=== PATIENT | male | born 1995 | race Caucasian/White ===

== ENCOUNTER 2019-03-02 20:15 | Emergency (ER) | payer BC ==
[2019-03-02] MEDS ORDERED: HALOPERIDOL LACT 5 MG/ML INJ IVP ONE (20:31)
[2019-03-02] MEDS ORDERED: NS 1,000 ML IV ONE ×2 (20:31→20:32)
--- NOTE | 2019-03-02 20:35 | EDPHY ---
H & P Stated Complaint: NAUSEA, VOMITING, DIARRHEA Time Seen by Provider: 03/02/19 20:25 HPI/ROS: CHIEF COMPLAINT: Nausea vomiting, diarrhea, lightheaded HISTORY OF PRESENT ILLNESS: 23-year-old male generally healthy no history of abdominal surgeries complaining of multiple episodes of nausea, vomiting, diarrhea for the past 4 hr. He recently visited to family members both of whom are sick with similar GI symptoms. Denies melena hematochezia. Denies untreated water sources. Denies recent antibiotic use. Denies abdominal pain. No testicular pain. No back or flank pain. No trauma. Patient reports that he returned today from visiting a family member who is currently hospitalized in [place] for gastroenteritis like symptoms, possible C diff although this is not confirmed. REVIEW OF SYSTEMS: 10 systems reviewed and negative with the exception of the elements mentioned in the history of present illness PAST MEDICAL & SURGICAL HISTORY: No pertinent medical or surgical history SOCIAL HISTORY: Nonsmoker. No alcohol use. No marijuana abuse. PHYSICAL EXAM (Prior to examination, patient consented to physical exam, hands were washed and my usual and customary physical exam procedures followed) 1) GENERAL: Well-developed, well-nourished, alert and oriented. Appears nontoxic, appears uncomfortable, retching, hyperventilating 2) HEAD: Normocephalic, atraumatic 3) HEENT: Pupils equal, round, reactive to light bilaterally. Sclera anicteric. Oropharynx: Dry mucous membranes 4) NECK: Full range of motion, no meningeal signs. 5) LUNGS: Clear auscultation bilaterally, no wheezes, no rhonchi, no retractions. 6) HEART: Regular rate and rhythm, no murmur, no heave, no gallop. 7) ABDOMEN: No guarding, no rebound, no focal tenderness, negative McBurney's, negative Hanks's, negative Rovsing's, negative peritoneal sign, I am unable to elicit any abdominal pain on exam 8) MUSCULOSKELETAL: Moving all extremities, no focal areas of tenderness, no obvious trauma. No peripheral edema or discoloration. 9) BACK: No CVA tenderness, no midline vertebral tenderness, no fluctuance, no step-off, no obvious trauma, no visual or palpable abnormality. 10) SKIN: No rash, no petechiae. 11) Psychiatric: Patient is oriented X 3, there is no agitation. DIFFERENTIAL DIAGNOSIS: My differential diagnosis includes, but is not limited to, acute appendicitis, acute cholecystitis, bowel obstruction, acute pancreatitis, testicular torsion, gastritis and urinary tract infection. The patient understands that this diagnosis is provisional and can never be 100% accurate. This is a partial list of diagnoses considered. These considerations are based on history, physical exam, past history and reassessment.] - Personal History Current Tetanus Diphtheria and Acellular Pertussis (TDAP): Yes - Medical/Surgical History Hx Asthma: No Hx Chronic Respiratory Disease: No Hx Diabetes: No Hx Cardiac Disease: No Hx Renal Disease: No Hx Cirrhosis: No Hx Alcoholism: No Hx HIV/AIDS: No Hx Splenectomy or Spleen Trauma: No Other PMH: DENIES - Social History Smoking Status: Never smoked Constitutional: Initial Vital Signs Temperature (C) 36.6 C 03/02/19 20:21 Heart Rate 119 H 03/02/19 20:21 Respiratory Rate 22 H 03/02/19 20:21 Blood Pressure 96/71 L 03/02/19 20:21 O2 Sat (%) 95 03/02/19 20:21 O2 Delivery Mode Room Air Allergies/Adverse Reactions: pertussis vaccine,adsorbed Allergy (Verified 03/02/19 20:20) Home Medications: Medication Instructions Recorded NK [No Known Home Meds] 03/02/19 Medical Decision Making - Diagnostics Imaging Results: Imaging Impressions Abdomen CT 03/02/19 21:45 Impression: 1. Fluid-filled distention of small bowel and colon suggestive of gastroenteritis. No CT evidence of acute appendicitis. Results called to Arturo Vale PA-C, at 10:21 PM. Images reviewed myself ED Course/Re-evaluation: 10:40 p.m.: Re-evaluation. Patient is sleeping, able tolerate oral intake. He has provide a stool sample. I reviewed his imaging studies with him showing no evidence of acute appendicitis. Does have CT findings consistent with gastroenteritis. He was able to provide a stool sample which is positive for blood however further testing the will not be resulted for several hours. He would like to be discharged. Plan will be discharge home. His roommate with whom he lives requests that we call her given his somnolence, her name is Jessika . Will hold on antibiotics until further stool results returned. Patient feels comfortable being discharged. All questions and concerns addressed by myself. Patient given my usual and customary discharge precautions and instructions regarding their clinical impression. Care of patient under supervision of secondary supervising physician Dr Hamilton . 11:06 p.m.: As the patient was being discharged he received a phone call from his mother and [place]. He provided verbal consent to disclose medical information. She expressed her concern form at this time that they had been visiting his grandfather who had positive C diff colitis and Klebsiella and she recommended he be admitted to the hospital. I offered admission to the hospital. He is adamant that he does not want to stay and thinks he can be discharged. Will hold on empiric C diff colitis treatment at this time but I have recommended he minimizes public contact and we will contact him with his stool results. - Data Points Laboratory Results: Laboratory Results 03/02/19 20:34 03/02/19 20:34 03/02/19 03/02/19 03/02/19 21:05 20:34 20:34 WBC 17.03 10^3/uL H 10^3/uL (3.80-9.50) RBC 5.21 10^6/uL 10^6/uL (4.40-6.38) Hgb 16.7 g/dL g/dL (13.7-17.5) Hct 46.1 % % (40.0-51.0) MCV 88.5 fL fL (81.5-99.8) MCH 32.1 pg pg (27.9-34.1) MCHC 36.2 g/dL g/dL (32.4-36.7) RDW 11.9 % % (11.5-15.2) Plt Count 286 10^3/uL 10^3/uL (150-400) MPV 9.9 fL fL (8.7-11.7) Neut % (Auto) 89.5 % H % (39.3-74.2) Lymph % (Auto) 4.1 % L % (15.0-45.0) Sanders % (Auto) 5.3 % % (4.5-13.0) Eos % (Auto) 0.2 % L % (0.6-7.6) Baso % (Auto) 0.5 % % (0.3-1.7) Nucleat RBC Rel Count 0.0 % % (0.0-0.2) Absolute Neuts (auto) 15.25 10^3/uL H 10^3/uL (1.70-6.50) Absolute Lymphs (auto) 0.69 10^3/uL L 10^3/uL (1.00-3.00) Absolute Monos (auto) 0.90 10^3/uL H 10^3/uL (0.30-0.80) Absolute Eos (auto) 0.04 10^3/uL 10^3/uL (0.03-0.40) Absolute Basos (auto) 0.08 10^3/uL 10^3/uL (0.02-0.10) Absolute Nucleated RBC 0.00 10^3/uL 10^3/uL (0-0.01) Immature Gran % 0.4 % % (0.0-1.1) Immature Gran # 0.07 10^3/uL 10^3/uL (0.00-0.10) Sodium 139 mEq/L mEq/L (135-145) Potassium 3.6 mEq/L mEq/L (3.5-5.2) Chloride 104 mEq/L mEq/L (97-110) Carbon Dioxide 21 mEq/l L mEq/l (22-31) Anion Gap 14 mEq/L mEq/L (6-14) BUN 13 mg/dL mg/dL (7-23) Creatinine 0.8 mg/dL mg/dL (0.7-1.3) Estimated GFR > 60 Glucose 144 mg/dL H mg/dL (70-100) Calcium 10.1 mg/dL mg/dL (8.5-10.4) Total Bilirubin 1.5 mg/dL H mg/dL (0.1-1.4) Conjugated Bilirubin 0.3 mg/dL mg/dL (0.0-0.5) Unconjugated Bilirubin 1.2 mg/dL H mg/dL (0.0-1.1) AST 19 IU/L IU/L (17-59) ALT 32 IU/L IU/L (21-72) Alkaline Phosphatase 76 IU/L IU/L (38-126) Total Protein 7.9 g/dL g/dL (6.3-8.2) Albumin 4.8 g/dL g/dL (3.5-5.0) Lipase 165 IU/L IU/L (23-300) Stool Occult Bld Scrn POSITIVE H (NEGATIVE) Medications Given: Discontinued Medications Haloperidol Lactate (Haldol Injection) 2.5 mg IVP EDNOW ONE Stop: 03/02/19 20:32 Last Admin: 03/02/19 20:41 Dose: 2.5 mg Sodium Chloride (Ns) 1,000 mls @ 0 mls/hr IV ONCE ONE PRN Reason: Wide Open Stop: 03/02/19 20:32 Last Admin: 03/02/19 20:37 Dose: 1,000 mls Sodium Chloride (Ns) 1,000 mls @ 0 mls/hr IV ONCE ONE PRN Reason: Wide Open Stop: 03/02/19 20:33 Last Admin: 03/02/19 20:42 Dose: 1,000 mls Lorazepam (Ativan Injection) 1 mg IVP EDNOW ONE Stop: 03/02/19 21:46 Last Admin: 03/02/19 22:08 Dose: 1 mg Ondansetron HCl (Zofran) 4 mg IVP EDNOW ONE Stop: 03/02/19 21:08 Last Admin: 03/02/19 21:21 Dose: 4 mg Departure - Departure Disposition: Home, Routine, Self-Care Clinical Impression: Nausea vomiting and diarrhea, Volume depletion Condition: Good Instructions: Ondansetron (By mouth), Acute Nausea and Vomiting (ED), Acute Diarrhea (ED) Additional Instructions: Your stool results are pending. We will call you with the results. Referrals: Jumana Fernández MD [Medical Doctor] - 2-3 days, call for appt.
[2019-03-02] MEDS ORDERED: ONDANSETRON 4 MG/2 ML VIAL ONE (20:38)
[2019-03-02 20:47] LABS: PLATELET COUNT 286 10^3/uL (150-400)
[2019-03-02] MEDS ORDERED: ONDANSETRON 4 MG/2 ML VIAL IVP ONE (21:07)
[2019-03-02] MEDS ORDERED: LORazepam 2 MG/ML INJ IVP ONE (21:45)
[2019-03-02] MEDS ORDERED: IOPAMIDOL (ISOVUE-300) 100 ML BTL ONE (21:50)
[2019-03-02] MEDS ORDERED: ONDANSETRON 4MG PREPACK#2 BTL TAKEHOME ONE (22:45)
[2019-03-02 23:21] VITALS: BP 117/96
== END 2019-03-02 23:21 | disposition home or self-care (01) ==
DX: R11.2 Nausea with vomiting, unspecified (principal); R19.7 Diarrhea, unspecified; R42 Dizziness and giddiness; E86.9 Volume depletion, unspecified
CPT/HCPCS: 96374; J1630; J2060; J2405; Q9967